=== PATIENT | female | born 2000 | race Caucasian/White ===

== ENCOUNTER 2020-07-03 19:58 | Emergency (ER) | payer OTHER ==
[~2020-07-03] VITALS: Ht 152.4 cm; Wt 47.0 kg
[2020-07-03] MEDS ORDERED: IPRA4AER IH (20:21)
[2020-07-03] MEDS ORDERED: VIT1TABL66 PO (20:21)
[2020-07-03] MEDS ORDERED: IBUPROFEN 400 MG TABLET PO ONE (20:30)
[2020-07-03 21:15] VITALS: BP 143/91
== END 2020-07-03 21:42 | disposition home or self-care (01) ==
LOC: EMS 20:01
DX: S49.92XA Unspecified injury of left shoulder and upper arm, initial encounter (principal); J45.909 Unspecified asthma, uncomplicated; I10 Essential (primary) hypertension; Z88.5 Allergy status to narcotic agent; Z91.011 Allergy to milk products; V98.8XXA Other specified transport accidents, initial encounter; Y93.89 Activity, other specified; Y92.488 Other paved roadways as the place of occurrence of the external cause; Y99.8 Other external cause status

== ENCOUNTER 2020-07-15 04:58 | Emergency (ER) | payer OTHER ==
[~2020-07-15] VITALS: Ht 154.9 cm; Wt 45.5 kg
[~2020-07-15 04:58] MED LIST: IPRA4AER IH; VIT1TABL66 PO
[2020-07-15] MEDS ORDERED: DiphenhydrAMINE HCL 50 MG/ML VIAL IM ONE (05:30)
[2020-07-15 06:03] VITALS: BP 133/89
== END 2020-07-15 06:13 | disposition home or self-care (01) ==
LOC: EMS 04:58
DX: T78.40XA Allergy, unspecified, initial encounter (principal); S39.012A Strain of muscle, fascia and tendon of lower back, initial encounter; L50.9 Urticaria, unspecified; J45.909 Unspecified asthma, uncomplicated; I10 Essential (primary) hypertension; Z88.6 Allergy status to analgesic agent; Z91.011 Allergy to milk products; X58.XXXA Exposure to other specified factors, initial encounter; Y93.89 Activity, other specified; Y92.89 Other specified places as the place of occurrence of the external cause; Y99.8 Other external cause status
CPT/HCPCS: 96372; J1200